=== PATIENT | male | born 1985 | race Caucasian/White ===

== ENCOUNTER 2016-07-30 18:31 | Emergency (ER) | payer OTHER ==
[2016-07-30 19:31] VITALS: BP 133/90
--- NOTE | 2016-07-30 20:00 | UC ---
Respiratory Complaint HPI - HPI Summary HPI Summary: The patient comes in today for: 1. Cough: Onset: 14 days ago. Palliative/provocative: Nothing makes better or worse. He uses Nyquil and Mucinex. Quality: Harsh. Region/radiation: Lungs Severity: Keeps him up at night. Time: Comes and goes. Associated symptoms: Cough production: More in the morning and evening--more clear at this time, but still green. Rhinitis: "a bit--more in the morning"--green/yellow. Upper tooth pain: None. Sinus pressure: Not so much now. Fevers: None documented. Dyspnea: None Wheezing: Not recently. He has not used inhalers. Chest pain: None. He states that his present cough medication is not helping him sleep. * - History of Current Complaint Chief Complaint: UCRespiratory Stated Complaint: COUGH Time Seen by Provider: 07/30/16 19:23 Hx Obtained From: Patient - Allergies/Home Medications Allergies/Adverse Reactions: Allergies Allergy/AdvReac Type Severity Reaction Status Date / Time No Known Allergies Allergy Verified 07/30/16 19:31 PMH/Surg Hx/FS Hx/Imm Hx Previously Healthy: Yes Endocrine History Of: Denies: Diabetes, Thyroid Disease, Hyperthyroidism, Hypothyroidism, Dyslipidemia Cardiovascular History Of: Denies: Cardiac Disorders, Hypertension, Pacemaker/ICD, Myocardial Infarction , Congestive Heart Failure, Atrial Fibrillation, Deep Vein Thrombosis, Bleeding Disorders Respiratory History Of: Denies: COPD, Asthma, Bronchitis, Pneumonia, Pulmonary Embolism GI/ History Of: Denies: Gastroesophageal Reflux, Ulcer, Gastrointestinal Bleed, Gall Bladder Disease, Kidney Stones, Diverticulitis, Renal Disease, Urosepsis Neurological History Of: Denies: TIA, CVA, Dementia, Seizures, Migraine Psychological History Of: Denies: Anxiety, Depression, Bipolar Disorder, Schizophrenia, Post Traumatic Stress Disorder Cancer History Of: Denies: Lung Cancer, Colorectal Cancer, Breast Cancer, Prostate Cancer, Cervical Cancer Other History Of: Negative For: HIV, Hepatitis B, Hepatitis C, Anticoagulant Therapy - Surgical History Surgical History: Yes Surgery Procedure, Year, and Place: denies - Family History Known Family History: Positive: Cardiac Disease Negative: Hypertension - Social History Occupation: Employed Full-time Alcohol Use: Occasionally Substance Use Type: None Smoking Status (MU): Former Smoker Type: Cigarettes Length of Time of Smoking/Using Tobacco: 6 When Did the Patient Quit Smoking/Using Tobacco: 2014 - Immunization History Most Recent Influenza Vaccination: denies Review of Systems Constitutional: Negative Skin: Negative Eyes: Negative ENT: Negative, Nasal Discharge Respiratory: Cough Cardiovascular: Negative Gastrointestinal: Negative Genitourinary: Negative Motor: Negative All Other Systems Reviewed And Are Negative: Yes Physical Exam Triage Information Reviewed: Yes Appearance: Well-Appearing, No Pain Distress, Well-Nourished Vital Signs: Initial Vital Signs Temp 98 F 07/30/16 19:22 Pulse 104 07/30/16 19:22 Resp 18 07/30/16 19:22 BP 133/90 07/30/16 19:22 Pulse Ox 99 07/30/16 19:22 Vital Signs Reviewed: Yes Eyes: Positive: Conjunctiva Clear. Negative: Discharge ENT: Positive: Hearing grossly normal. Negative: Pharyngeal erythema, Nasal congestion, Nasal drainage, TM bulging, TM dull, TM red, Tonsillar swelling, Tonsillar exudate Dental: Negative: Gross Decay/Caries @, Dental Fracture @ Neck: Positive: Supple, Nontender, No Lymphadenopathy. Negative: Nuchal Rigidity Respiratory: Positive: Chest non-tender, Lungs clear, No respiratory distress, No accessory muscle use, Other: - He would cough frequently during the office visit (dry).. Negative: Crackles, Wheezing Cardiovascular: Positive: RRR, No Murmur Abdomen Description: Positive: Nontender, No Organomegaly, Soft. Negative: Distended, Guarding Musculoskeletal: Positive: Strength Intact, ROM Intact, No Edema Neurological: Positive: Alert, Muscle Tone Normal Psychological: Positive: Age Appropriate Behavior, Abnormal Response To Family Skin: Negative: rashes, breakdown UC Diagnostic Evaluation - Laboratory O2 Sat by Pulse Oximetry: 99 Respiratory Course/Dx - Course Course Of Treatment: Patient was told that many things can cause a chronic cough. However, considering his presenation, he was thought to have post infectious cough. He was told of his treatment options, and he wants to go with an inhaler and better cough suppressant. - Differential Dx/Diagnosis Differential Diagnosis/HQI/PQRI: Bronchitis, Laryngitis, Sinusitis Provider Diagnoses: post infectous cough. Upper respiratory infection Discharge - Discharge Plan Condition: Stable Disposition: HOME Patient Education Materials: Chronic Cough (ED) Referrals: Sadiq Rutherford MD [Primary Care Provider] - 1 Week (Please see your primary care provider in a week. If you get worse, please be seen sooner.)
--- NOTE | 2016-08-06 16:37 | UC ---
Progress - Progress Note Progress Note: The patient was contacted. He states that he is much better. He was told that since he is doing well, he can start to wean himself off the ipratropium inhaler.
== END 2016-07-30 20:30 | disposition home or self-care (01) ==
LOC: UCEAST 18:31
DX: J06.9 Acute upper respiratory infection, unspecified (principal); R05 Cough; Z87.891 Personal history of nicotine dependence
CPT/HCPCS: 99202; G0463

== ENCOUNTER 2016-10-29 09:27 | Emergency (ER) | payer OTHER ==
[2016-10-29 09:45] VITALS: BP 130/72
--- NOTE | 2016-10-29 10:29 | UC ---
General HPI - HPI Summary HPI Summary: The patient comes in today for: 1. Stepped on a corina nail: Onset: Last night--about 7 to 8:30 PM Palliative/provocative: Movement of the foot makes it worse. Rest makes it better. Walking makes it worse. Quality: Ache Region: Sole of the right foot (instep) Severity: 5/10 Time: Constant. Associated symptoms: Event: He was wearing shoes and stepped on nail. The shoe had about a 3/4" sole. He Tetanus: He is not sure. Discharge: None Nail was "clean." * - History of Current Complaint Chief Complaint: UCSkin Stated Complaint: CORINA NAIL LAC ON FOOT Time Seen by Provider: 10/29/16 10:20 Hx Obtained From: Patient - Allergy/Home Medications Allergies/Adverse Reactions: Allergies Allergy/AdvReac Type Severity Reaction Status Date / Time No Known Allergies Allergy Verified 07/30/16 19:31 PMH/Surg Hx/FS Hx/Imm Hx Previously Healthy: Yes Endocrine History Of: Denies: Diabetes, Thyroid Disease, Hyperthyroidism, Hypothyroidism, Dyslipidemia Cardiovascular History Of: Denies: Cardiac Disorders, Hypertension, Pacemaker/ICD, Myocardial Infarction , Congestive Heart Failure, Atrial Fibrillation, Deep Vein Thrombosis, Bleeding Disorders Respiratory History Of: Denies: COPD, Asthma, Bronchitis, Pneumonia, Pulmonary Embolism GI/ History Of: Denies: Gastroesophageal Reflux, Ulcer, Gastrointestinal Bleed, Gall Bladder Disease, Kidney Stones, Diverticulitis, Renal Disease, Urosepsis Neurological History Of: Denies: TIA, CVA, Dementia, Seizures, Migraine Psychological History Of: Denies: Anxiety, Depression, Bipolar Disorder, Schizophrenia, Post Traumatic Stress Disorder Cancer History Of: Denies: Lung Cancer, Colorectal Cancer, Breast Cancer, Prostate Cancer, Cervical Cancer Other History Of: Negative For: HIV, Hepatitis B, Hepatitis C, Anticoagulant Therapy - Surgical History Surgical History: None Surgery Procedure, Year, and Place: denies - Family History Known Family History: Positive: Cardiac Disease Negative: Hypertension - Social History Occupation: Employed Full-time Alcohol Use: Occasionally Substance Use Type: None Smoking Status (MU): Former Smoker Type: Cigarettes Length of Time of Smoking/Using Tobacco: 6 When Did the Patient Quit Smoking/Using Tobacco: 2014 - Immunization History Most Recent Influenza Vaccination: denies Review of Systems Constitutional: Negative Skin: Negative Eyes: Negative ENT: Negative Respiratory: Negative Cardiovascular: Negative Gastrointestinal: Negative Genitourinary: Negative All Other Systems Reviewed And Are Negative: Yes Physical Exam Triage Information Reviewed: Yes Appearance: Well-Appearing, No Pain Distress, Well-Nourished Vital Signs: Initial Vital Signs Temp 98 F 10/29/16 09:41 Pulse 78 10/29/16 09:41 Resp 16 10/29/16 09:41 BP 130/72 10/29/16 09:41 Pulse Ox 98 10/29/16 09:41 Vital Signs Reviewed: Yes Eyes: Positive: Conjunctiva Clear. Negative: Discharge ENT: Positive: Hearing grossly normal. Negative: Pharyngeal erythema, Nasal congestion, TM bulging, TM dull, TM red, Tonsillar swelling, Tonsillar exudate Neck: Positive: Supple, Nontender, No Lymphadenopathy. Negative: Nuchal Rigidity Respiratory: Positive: Lungs clear, No respiratory distress, No accessory muscle use. Negative: Rhonchi, Wheezing Cardiovascular: Positive: RRR, No Murmur Abdomen Description: Positive: Nontender, No Organomegaly, Soft. Negative: Distended, Guarding Musculoskeletal: Positive: Strength Intact, ROM Intact Neurological: Positive: Alert, Muscle Tone Normal, Fatigued Psychological: Positive: Age Appropriate Behavior, Consolable Skin: Positive: Other - He has a puncture wound of the right foot instep. There is slight redness and tenderness around the wound. It is closed with a scab with no bleeding or discharge. It is about 3 mm in size. No fluctuance.. Negative: rashes, breakdown Course/Dx - Course Course Of Treatment: Boostrix given along with dressing. - Differential Dx - Multi-Symptom Provider Diagnoses: nail puncture wound of the right foot. Discharge - Discharge Plan Condition: Stable Disposition: HOME Patient Education Materials: Puncture Wound (ED) Referrals: Sadiq Rutherford MD [Primary Care Provider] - 1 Week (Please see your primary care provider in a week to see how well you are doing. If you get worse, please be seen sooner in the ER or through us.)
[2016-10-29] MEDS ORDERED: Tetan/Diph/Pertus SYR(Tdap)* 0.5 ML SYR(BOOSTRIX) use SYR IM ONE (10:30)
== END 2016-10-29 11:18 | disposition home or self-care (01) ==
LOC: UCEAST 09:27
DX: S91.331A Puncture wound without foreign body, right foot, initial encounter (principal); W45.0XXA Nail entering through skin, initial encounter; Y93.9 Activity, unspecified; Y92.9 Unspecified place or not applicable; Z23 Encounter for immunization; Z87.891 Personal history of nicotine dependence
CPT/HCPCS: 90471; 90715; 96372; 99212; G0463

== ENCOUNTER 2017-12-14 16:26 | Emergency (ER) | payer OTHER ==
[2017-12-14 16:43] VITALS: BP 126/78
--- NOTE | 2017-12-14 17:16 | UC ---
Skin Complaint HPI - HPI Summary HPI Summary: This patient is a 32 year old M presenting to [facility] with a chief complaint of a pruritic rash to the bilateral dorsum of feet for the past month or so. He states he began using an antifungal cream around 12/04/17. He reports covering the rash with Vaseline as well as, hydrogen peroxide. 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 - History of Current Complaint Chief Complaint: UCLowerExtremity Time Seen by Provider: 12/14/17 17:03 Stated Complaint: RASH Hx Obtained From: Patient Onset/Duration: Lasting Weeks, Still Present Skin Exposure Onset/Duration: Weeks Ago Timing: Constant Onset Severity: Mild Current Severity: Moderate Pain Intensity: 0 Location: Foot (Right), Foot (Left) Character: Pruritus, Redness Aggravating Factor(s): Humidity Alleviating Factor(s): Nothing Associated Signs & Symptoms: Positive: Negative - Allergy/Home Medications Allergies/Adverse Reactions: Allergies Allergy/AdvReac Type Severity Reaction Status Date / Time No Known Allergies Allergy Verified 12/14/17 16:42 Review of Systems Constitutional: Negative Skin: Rash All Other Systems Reviewed And Are Negative: Yes PMH/Surg Hx/FS Hx/Imm Hx Previously Healthy: Yes - Denies PMHx Other History Of: Negative For: HIV, Hepatitis B, Hepatitis C, Anticoagulant Therapy - Surgical History Surgical History: None Surgery Procedure, Year, and Place: denies - Family History Known Family History: Positive: Cardiac Disease Negative: Hypertension - Social History Alcohol Use: Occasionally Substance Use Type: None Smoking Status (MU): Former Smoker Type: Cigarettes Length of Time of Smoking/Using Tobacco: 6 When Did the Patient Quit Smoking/Using Tobacco: 2014 - Immunization History Most Recent Influenza Vaccination: denies Physical Exam - Summary Physical Exam Summary: General: well-appearing, no pain distress Skin: warm, color reflects adequate perfusion, dry, Erythematous erosions on the dorsum of the feet primary between the toes, skin break down on the left foot, vesicular eruption to medial and lateral aspects of both feet Head: normal Eyes: EOMI, ZHEN ENT: normal Neck: supple, nontender Respiratory: CTA, breath sounds present Cardiovascular: RRR Abdomen: soft, nontender Bowel: present Musculoskeletal: normal, strength/ROM intact Neurological: sensory/motor intact, A&O x3 Psychological: affect/mood appropriate Triage Information Reviewed: Yes Vital Signs: Initial Vital Signs Temp 98.4 F 12/14/17 16:37 Pulse 101 12/14/17 16:37 Resp 16 12/14/17 16:37 BP 126/78 12/14/17 16:37 Pulse Ox 98 12/14/17 16:37 Vital Signs Reviewed: Yes Course/Dx - Diagnoses Provider Diagnoses: ATHLETES FOOT B/L Discharge - Sign-Out/Discharge Documenting (check all that apply): Patient Departure - Discharge Plan Condition: Stable Disposition: HOME Prescriptions: Cephalexin CAP* [Keflex CAP*] 500 mg PO TID #30 cap Miconazole Nitrate [Miconazorb AF] 1 applic TOPICAL BID #71 gm Patient Education Materials: Athlete's Foot (ED) Referrals: Sadiq Rutherford MD [Primary Care Provider] - Additional Instructions: FOLLOW UP WITH YOUR DOCTOR. GET RECHECKED FOR ANY WORSENING OF YOUR CONDITION OR QUESTIONS OR CONCERNS. - Billing Disposition and Condition Condition: STABLE Disposition: Home
== END 2017-12-14 17:31 | disposition home or self-care (01) ==
LOC: UCEAST 16:26
DX: B35.3 Tinea pedis (principal); Z82.49 Family history of ischemic heart disease and other diseases of the circulatory system; Z87.891 Personal history of nicotine dependence
CPT/HCPCS: 99212; G0463